=== PATIENT | female | born 1965 | race Caucasian/White ===

== ENCOUNTER → 2021-11-07 07:38 | Outpatient (CLI) | payer OTHER, SELFPAY ==
--- NOTE | ~2021-11-07 | US_ITS ---
US right upper quadrant INDICATION: Elevated liver enzymes. Right upper quadrant pain. PROCEDURE: Realtime right upper abdominal ultrasound. COMPARISON: No prior studies for comparison. FINDINGS: The pancreas is normal without focal mass or pancreatic ductal dilation. Liver echotexture is normal without focal mass or intrahepatic biliary dilatation. There is normal directional flow i n the portal vein. The gallbladder is normal without stones, gallbladder wall thickening or pericholecystic fluid. Comm on bile duct measures 7 mm. No sonographic Sheehan's sign. IMPRESSION: 1: Borderline sized common bile duct measuring 7 mm. No definite obstructing stone or mass. Consider correlation with MRCP. Reviewed, dictated and finalized at location B. RLIBRARY LOAN SPECIALIST IMPRESSION: 1: Borderline sized common bile duct measuring 7 mm. No definite obstructing st one or mass. Consider correlation with MRCP.
== END ==
PROVIDERS: PCP Internal Medicine; Visit Provider Internal Medicine
DX: R74.8 Abnormal levels of other serum enzymes (principal)
CPT/HCPCS: 76705

== ENCOUNTER 2025-03-27 15:47 | Outpatient (CLI) | payer BC, SELFPAY ==
--- NOTE | ~2025-03-27 | MR_ITS ---
MRI of the lumbar spine Clinical History: Radiculopathy Technique: Axial T2-weighted images, and sagittal T1-weighted, T2-weighted, and T2 fat-sat images wer e acquired. Findings: There is no acute fracture or subluxation lumbar spine. Vertebral bodies maintain normal al ignment. There are Modic type II signal changes about the L2-L3 and L5-S1 disc spaces in particular. At L1-L2 there is no disc bulge or herniation. There is mild facet hypertrophy. No spinal canal steno sis or neural foraminal narrowing. At L2-L3, there is advanced degenerative disc narrowing. No significant disc bulge or herniation. The re is moderate to advanced facet arthropathy. No central canal stenosis. There is moderate left neura l foraminal narrowing. Right neural foramen preserved. L3-L4, there is no significant disc bulge or herniation. There is severe facet arthropathy. No centra l canal stenosis or neural foraminal narrowing. At L4-L5, there is advanced degenerative disc narrowing. There is minimal disc bulge with advanced fa cet arthropathy. No central canal stenosis. There is moderate to advanced right neural foraminal narr owing. Left neural foramen preserved. At L5-S1, there is mild disc bulge with annular fissure. There is moderate to advanced facet arthropa thy. No central canal stenosis. There is moderate bilateral neural foraminal narrowing, right worse t jimenes left. Paravertebral soft tissues are unremarkable. Impression: Moderate degenerative spondylosis overall, as detailed above. Reviewed, dictated and finalized at [facility]. Impression: Moderate degenerative spondylosis overall, as detailed above.
== END 2025-03-27 15:48 | disposition home or self-care (01) ==
LOC: MICIMG 15:48
PROVIDERS: PCP Internal Medicine; Visit Provider Nurse Practitioner Family
DX: M47.26 Other spondylosis with radiculopathy, lumbar region (principal)
CPT/HCPCS: 72148

== ENCOUNTER 2025-09-03 15:54 | Outpatient (CLI) | payer BC, SELFPAY ==
--- NOTE | ~2025-09-03 | XR_ITS ---
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 Findings: No acute fracture or malalignment. No significant degenerative changes. Soft tissues unremarkable. Impression: No acute fracture or malalignment. Reviewed, dictated and finalized at location P. R WATER ASSISTANT Impression: No acute fracture or malalignment.
== END 2025-09-03 15:55 | disposition home or self-care (01) ==
LOC: MICIMG 15:55
PROVIDERS: PCP Internal Medicine; Visit Provider Nurse Practitioner Family
DX: M25.551 Pain in right hip (principal); M25.552 Pain in left hip
CPT/HCPCS: 73521